=== PATIENT | female | born 1955 | race Caucasian/White ===

== ENCOUNTER 2020-12-24 13:35 | Outpatient (CLI) | payer OTHER ==
--- NOTE | 2020-12-29 08:03 | Mammography Report ---
BILATERAL DIGITAL SCREENING MAMMOGRAM 3D/2D: 12/24/2020 CLINICAL: Routine screening. No prior exams were available for comparison. The tissue of both breasts is predominantly fatty. No significant masses, calcifications, or other findings are seen in either breast. IMPRESSION: NEGATIVE There is no mammographic evidence of malignancy. A 1 year screening mammogram is recommended. This exam was interpreted at Station ID: [id number]. NOTE: For mammograms, a report in lay terms will be sent to the patient. Approximately 15% of breast malignancies will not be visualized mammographically. In the management of a palpable breast mass, a negative mammogram must not discourage biopsy of a clinically suspicious lesion. Electronically Signed By: Wesley Richardson M.D. slc/penrad:12/28/2020 08:11:17 ACR BI-RADS Category 1: Negative 3341F PARENCHYMAL PATTERN: (F) - The breast(s) demonstrate(s) diffuse fatty replacement. BI-RADS CATEGORY: (1) - 1 RECOMMENDATION: (ANNUAL) - Recommend routine annual screening mammography. [id number] 1 year screening LATERALITY: (B)
== END 2020-12-24 13:36 | disposition home or self-care (01) ==
LOC: DI 13:35
PROVIDERS: ATTEND Internal Medicine
DX: Z12.31 Encounter for screening mammogram for malignant neoplasm of breast (principal)

== ENCOUNTER 2021-02-18 12:10 | Outpatient (CLI) | payer OTHER ==
--- NOTE | 2021-02-18 14:02 | XRAY Report ---
PROCEDURE: Foot 3 View LT INDICATIONS: INJURY OF FOOT TECHNIQUE: 3 views of the foot were acquired. COMPARISON: None. FINDINGS: Bones/joints: No acute, displaced fracture or dislocation. Dorsal and plantar calcaneal enthesophytes are seen. Soft tissues: No focal abnormality. IMPRESSION: 1.No acute osseous abnormality. Reviewed by: Francisco Patiño MD on 02/18/2021 2:01 PM PDT Approved by: Francisco Patiño MD on 02/18/2021 2:01 PM PDT Station ID: [id number]
== END 2021-02-18 12:11 | disposition home or self-care (01) ==
LOC: DI 12:10
PROVIDERS: ATTEND Internal Medicine
DX: S99.922A Unspecified injury of left foot, initial encounter (principal)

== ENCOUNTER 2022-02-08 08:29 | Outpatient (CLI) | payer MEDICARE ==
--- NOTE | 2022-02-08 08:56 | DEXA Report ---
PROCEDURE: Dexa Spine and/or Hip INDICATIONS: POST MENOPAUSAL TECHNIQUE: Dual energy x-ray absorptiometry (DXA) was performed on a Kuponjo System. Regions measur ed are the AP Spine, femoral neck, and if needed forearm. COMPARISON: None. FINDINGS: Lumbar Spine: Bone Mineral Density 1.5 g/cm/cm,T score 2.7, Left Hip: Bone Mineral Density 1.0 g/cm/cm,T score 0.1, Left Femoral Neck: Bone Mineral Density 1.0 g/cm/cm, T score -0.2, (T score greater or equal to -1.0: NORMAL) (T score from -1.1 to -2.4: OSTEOPENIA) (T score less than or equal to -2.5 to: OSTEOPOROSIS) Impression: Normal bone mineral density. Patients with diagnosis of osteoporosis or osteopenia should have regular bone mineral density assess ment. For those eligible for Medicare, routine testing is allowed once every 2 years. Testing frequ ency can be increased for patients who have rapidly progressing disease or for those who are receivin g medical therapy to restore bone mass. Reviewed by: Arsenio Oden MD on 02/08/2022 8:54 AM PDT Approved by: Arsenio Oden MD on 02/08/2022 8:54 AM PDT Station ID: [id number]
== END 2022-02-08 08:30 | disposition home or self-care (01) ==
LOC: DI 08:29
PROVIDERS: ATTEND Physician Assistant
DX: Z78.0 Asymptomatic menopausal state (principal)

== ENCOUNTER 2022-02-09 07:37 | Outpatient (CLI) | payer MEDICARE ==
[2022-02-09 08:04] LABS: BASOPHILS # (AUTO) 0.1 10^3/uL (0.0-0.1); BASOPHILS % (AUTO) 0.7 %; EOSINOPHILS # (AUTO) 0.3 10^3/uL (0.0-0.7); EOSINOPHILS % (AUTO) 4.9 %; HCT - HEMATOCRIT 38.7 % (37.0-47.0); HGB - HEMOGLOBIN 12.5 g/dL (12.0-16.0); LYMPHOCYTES % (AUTO) 28.7 %; MEAN CORPUSCULAR HEMOGLOBIN 29.2 pg (27.0-31.0); MEAN CORPUSCULAR HGB CONC 32.3 g/dL (32.0-36.0); MEAN CORPUSCULAR VOLUME 90.4 fL (81.0-99.0); MONOCYTES # (AUTO) 0.5 10^3/uL (0.0-1.0); MONOCYTES % (AUTO) 6.4 %; NEUTROPHILS # (AUTO) 4.1 10^3/uL (1.5-6.6); NEUTROPHILS % (AUTO) 58.9 %; PLT - PLATELET COUNT 269 10^3/uL (130-450); RED BLOOD COUNT 4.28 10^6/uL (4.20-5.40); RED CELL DISTRIBUTION WIDTH 13.6 % (12.0-15.0)
[2022-02-09 08:05] LABS: ALBUMIN 4.1 g/dL (3.2-5.5); ALBUMIN/GLOBULIN RATIO 1.3 (1.0-2.2); ALKALINE PHOSPHATASE 74 IU/L (42-121); ALT ALANINE AMINOTRANSFERASE 14 IU/L (10-60); AST ASPARTATE AMINOTRANSFERASE 15 IU/L (10-42); BILIRUBIN,TOTAL 0.7 mg/dL (0.2-1.0); BUN - BLOOD UREA NITROGEN 17 mg/dL (6-20); CALCIUM 9.2 mg/dL (8.5-10.3); CARBON DIOXIDE - CO2 28 mmol/L (21-32); CHLORIDE 107 mmol/L (101-111); CHOL/HDL RATIO 2.8 (<4.4); CHOLESTEROL 180 mg/dL; CREATININE 0.7 mg/dL (0.4-1.0); GFR - MDRD 84 (>89); GLUCOSE 99 mg/dL (70-100); HDL CHOLESTEROL 64 mg/dL; LDL CHOLESTEROL,CALCULATED 99 mg/dL; LDL/HDL RATIO 1.5 (<4.4); POTASSIUM 4.2 mmol/L (3.5-5.0); SODIUM 142 mmol/L (135-145); TOTAL PROTEIN 7.2 g/dL (6.7-8.2); TRIGLYCERIDES 83 mg/dL; VLDL CHOLESTEROL 17 mg/dL
[2022-02-09 08:16] LABS: THYROID STIMULATING HORMONE 1.85 uIU/mL (0.34-5.60)
== END 2022-02-09 07:38 | disposition home or self-care (01) ==
LOC: LAB 07:37
PROVIDERS: ATTEND Physician Assistant
DX: I10 Essential (primary) hypertension (principal); Z13.220 Encounter for screening for lipoid disorders; I49.9 Cardiac arrhythmia, unspecified
CPT/HCPCS: 36415; 80053; 80061; 83721; 84443; 85025

== ENCOUNTER 2022-02-18 08:00 | Outpatient (CLI) | payer MEDICARE ==
--- NOTE | 2022-02-18 10:45 | XRAY Report ---
PROCEDURE: Ankle 3 View LT INDICATIONS: UNSPECIFIED INJURY OF LEFT ACHILLES TENDON TECHNIQUE: 3 views of the ankle were acquired. COMPARISON: None. FINDINGS: Bones: No fractures or dislocations. Ankle mortise is normally aligned. No suspicious bony lesions . Age-appropriate degenerative changes are seen. Moderate and Achilles calcaneal spurs are seen. T he talar dome demonstrates an unremarkable appearance. Soft tissues: Generalized soft tissue swelling is seen. There is thickening of the distal Achilles t endon. IMPRESSION: Thickening of the distal Achilles tendon, which is suggestive of a partial tear. If it would be helpful for clinical management decision making, please consider a dedicated, schedule d ankle MRI for further evaluation (assuming that there is no contraindication). Soft tissues tissue swelling can be seen. Underlying degenerative changes are seen, including moderate plantar and Achilles calcaneal spurs. Reviewed by: Chip Flowers MD on 02/18/2022 9:43 AM LENNY Approved by: Chip Flowers MD on 02/18/2022 9:43 AM LENNY Station ID: [id number]
== END 2022-02-18 23:59 | disposition home or self-care (01) ==
LOC: DI 08:00
PROVIDERS: ATTEND Physician Assistant
DX: S86.002A Unspecified injury of left Achilles tendon, initial encounter (principal); M19.072 Primary osteoarthritis, left ankle and foot; R22.42 Localized swelling, mass and lump, left lower limb; M77.32 Calcaneal spur, left foot

== ENCOUNTER 2022-03-01 09:01 | Outpatient (CLI) | payer MEDICARE | END 2022-03-01 09:02 | disposition home or self-care (01) | LOC: NS 09:01 | PROVIDERS: ATTEND Family Medicine | DX: Z71.3 Dietary counseling and surveillance (principal); E66.9 Obesity, unspecified; Z68.41 Body mass index [BMI] 40.0-44.9, adult | CPT/HCPCS: 97802 ==

== ENCOUNTER 2022-04-10 08:55 | Outpatient (CLI) | payer MEDICARE ==
[2022-04-10 09:52] VITALS: BP 120/78
--- NOTE | 2022-04-10 09:52 | SLEEP CARE CONSULTATION ---
Information from patient questionnaire entered by Xu Chau. I have reviewed and concur with the information entered by Xu Chau. This document represents the service I personally performed and the decisions made by me, Christian Pleitez MD, [facility]. History of Present Illness Service Date and Time: 04/10/2022 0855 Reason for Visit: New patient Chief Complaint: reports: Other (new rx ) Date of Onset: 10-15 yrs Usual bedtime: 930-10pm Time it takes to fall asleep: 2min Snores at night: Yes Observed to quit breathing while asleep: Yes Sleeps alone due to snoring: Yes Number of times waking at night: 3-4 Reasons for waking at night: reports: Snoring, Gasping for air Toss, Turn, or Twitch while sleeping: No Recalls having dreams: Yes Usually gets out of bed at: 530-6am Feels refreshed in the morning: No Morning headache: Yes (sinus headache) Prior sleep studies: Yes ([facility] 2009) Year and Where: 2009 Additional HPI information: I had the pleasure of seeing Ms. Harvey today regarding obstructive sleep apnea-hypopnea. As you know, she is a 66-year-old lady who was diagnosed with the sleep-disordered breathing in [place], [place] about 12 years ago. The report is not available. She has a ResMed AirSense 10 set at 4 20 cmH2O. She bought the device online out of pocket. She uses every night and all night except for when she is away from home. The compliance data show usage in 158 out of the past 180 nights, averaging 6.7 hours a night. The residual AHI is 1.0 and average air leak is 1.5 L/minute. The > 4 hour compliance rate for the past 30 days is 86%. She wears the ResMed P10 nasal pillows. She finds the treatment very beneficial. - Parasomnia Symptoms Ever been unable to move upon waking from sleep: No Walks in sleep: No Talks in sleep: No Ever acted out dreams in sleep: No Ever felt weak in the knees when startled or emotional: No Bothered by creepy, crawly, restless sensations in legs: No Problems with memory or concentration: No Subjective Initial [place] Sleepiness Scale score: 24 (04/04/2022) Past Medical History Past Medical History: reports: Arrythmia Social History The patient's occupation is a RE. Patient is Single and lives in [place]. Have you smoked in the past 12 months: No Alcohol use: Yes Alcohol amount and frequency: 1-2 drinks 2 times a week Caffeine use: Yes Caffeine amount and frequency: 1-2 cups daily Family History Family Hx Sleep Apnea: Father: Snoring, Sleep apnea - Treated, Sibling: Snoring, Sleep apnea - Treated Allergies and Home Medications Known drug allergies: No Drug allergies reviewed: Yes Home medication list reviewed: Yes Review of Systems Cardiovascular: reports: irregular heart rate or pulse Respiratory: denies: shortness of breath, wheeze, sputum production, chronic cough, other Gastrointestinal: denies: heartburn, difficulty swallowing, nausea, vomitting, diarrhea, abdominal pain, other Urinary: denies: incontinence, frequency, urgency, impotence, other Neurological: denies: headaches, seizure, head trauma, disorientation, speech dysfunction, gait or balance problems, fainting or unconsciousness, other Psychiatric: denies: Attention Deficit Hyperactivity, anxiety, depression, mood disorder, claustrophobia, other Ear/Nose/Throat: reports: sinus problems, dry mouth/throat Endocrine: denies: thyroid disease, history of goiter, sluggishness, too hot or cold, excessive thirst, increased appetite, increased urination, unexplained weakness, other Musculoskeletal: denies: joint pain, neck pain, back pain, joint swelling, muscle pain or cramping, mobility problems, other Immunologic: denies: sneezing, rash, itching, allergies to food or environment, other Physical Exam Vital signs obtained and entered by: XU Wang MA Blood Pressure: 120/78 (left arm) Cuff size: long Heart Rate: 83 O2 Saturation: 97 Height: 5 ft 7 in Weight: 287 lb 12.8 oz Body Mass Index: 45.1 BMI Classification: Morbidly Obese Neck circumference: 16 Mood/affect: Normal HEENT: No craniofacial malformation Nostrils: patent to airflow Turbinates: normal Septum: midline Mouth and throat: narrow oropharynx Soft palate: long Hard palate: normal Uvula: normal Uvula visualization: 50% Mallampati Class II Tongue: normal in size Tonsils: small Chin and jaw: normal size and position Neck: normal w/o lymphadenopathy or thyromegaly Heart: regular rate and rhythm, murmur Lungs: clear bilaterally Extremities: no edema or clubbing Neurologic: intact Impression and Plan IMPRESSION: 1. Obstructive Sleep Apnea-Hypopnea Syndrome, as previously diagnosed. She has good CPAP compliance. The current pressure setting appears effective and comfortable. Narrow oropharynx and obesity are common predisposing factors for obstructive sleep apnea-hypopnea syndrome. The patient has just gotten on Medicare which should cover her equipment. However, she will need a sleep study to show that she has obstructive sleep apnea-hypopnea. The patient requests a home sleep apnea test (HSAT). She would also like to have a prescription for a traveling CPAP. Plan: 1. Order a home sleep apnea test (HSAT). 2. Prescription made for a traveling autoCPAP set at 4 20 cmH2O. 3. Avoid alcohol, sedative and muscle relaxant around bedtime. 4. Attempt to lose weight. 5. Return for follow up after the test. Continue with device pressure at (cmH2O): 4 - 20 Follow up with Sleep Care in: 1-2 months Visit Type: In Office Time Spent with Patient (minutes): 15 Provider Statement: I spent 100% of the Face to Face Visit with the patient with greater than 50% spent counseling the patient and coordination of care.
== END 2022-04-10 08:56 | disposition home or self-care (01) ==
LOC: SC 08:55
PROVIDERS: ATTEND Internal Medicine Pulmonary Disease
DX: G47.33 Obstructive sleep apnea (adult) (pediatric) (principal); E66.01 Morbid (severe) obesity due to excess calories; Z68.42 Body mass index [BMI] 45.0-49.9, adult
CPT/HCPCS: 99202; G0463; 99212

== ENCOUNTER 2022-05-11 08:32 | Outpatient (CLI) | payer MEDICARE | END 2022-05-11 08:33 | disposition home or self-care (01) | LOC: SC 08:32 | PROVIDERS: ATTEND Internal Medicine Pulmonary Disease | DX: G47.33 Obstructive sleep apnea (adult) (pediatric) (principal); R09.02 Hypoxemia | CPT/HCPCS: G0399 ×2; 95806 ==

== ENCOUNTER 2022-06-23 14:05 | Outpatient (CLI) | payer MEDICARE ==
--- NOTE | 2022-06-23 11:12 | SLEEP CARE CONSULTATION ---
Information from patient questionnaire entered by Pat Chau. I have reviewed and concur with the information entered by Pat Chau. This document represents the service I personally performed and the decisions made by , Steph Melendez ARNP. History of Present Illness Service Date and Time: 06/23/2022 1100 Initial [place] Sleepiness Scale score: 24 (04/04/2022) Current [place] Sleepiness Scale score: 6 (06/23/22) Additional HPI information: ELEUTERIO RENTERIA returns via video telehealth visit for follow up and results of the recently performed home sleep study. She completed the HST to verify her diagnosis of obstructive sleep apnea. Patient has been on a CPAP for some time and will continue with nasal autoCPAP set at 4-20 cmH20. Patient counseled not drink alcohol less than 4 hours before bedtime as it can increase snoring and apnea. Patient was cautioned about risks of drowsy driving until sleepiness symptoms resolve. Patient denies drowsy driving. Sleep Study - Results Type of Sleep Study: Home sleep study (04/11/23) Prior sleep studies: Yes ([facility] 2009) Year and Where: 2009 Polysomnography/Home Sleep Study results: Physician Impression: The quality of the study is good. The length of the study is adequate (> 240 minutes). Please also see the tabulated and graphic data. 1. Obstructive Sleep Apnea-Hypopnea (ICD-10 G47.33), moderate, with an AHI of 27.5/hr and shanta SaO2 of 86%. During the study, the patient had 192 apneas (192 obstructive, 0 central, 0 mixed) and 32 hypopneas. The longest episode lasted 87.0 seconds. The respiratory events occurred independently of sleep stage and body position (supine AHI was 25.9 and non-supine, 28.92). 2. Hypoxemia (ICD-10 R09.02), mild, with the lowest oxygen saturation of 86 % and 6.9 minutes with SaO2 under 90%. Baseline oxygen saturation was normal (Average oxygen saturation was 93%). Allergies and Home Medications Drug allergies reviewed: Yes (NKDA) Home medication list reviewed: Yes (no changes) Review of Systems Review of systems same as previous: Yes (no changes) Physical Exam Vital signs obtained and entered by: VIA PHONE PAT Wang MA Height: 5 ft 7 in (PER PT) Weight: 277 lb (PER PT) Body Mass Index: 43.4 BMI Classification: Morbidly Obese Impression and Plan 1. Obstructive Sleep Apnea-Hypopnea Syndrome, moderate. Patient completed home study to verify her diagnosis and severity. She is to continue with her CPAP therapy. On CPAP therapy, the patient has better sleep quality and is more rested overall. She has not been able to obtain supplies regularly, has been buying online. The last time she bought online she got the wrong hose for her machine. She was informed that DME can be used. I will have my real estate closing coordinator call her and inform of DME options. A DWO prescription will then be made. Patient advised to contact this office if further supply problems. Patient's apnea severity and rationale for treatment to reduce apnea, improve sleep quality and reduce cardiovascular and cerebrovascular events was reviewed. I also reviewed the benefit of consistent device use of CPAP for arrhythmia. 2. Hypoxemia, mild, with the lowest oxygen saturation of 86% and 6.9 minutes with SaO2 under 90%. Her baseline oxygen saturation was normal with an average oxygen saturation of 93%. * Continue auto CPAP pressure at 4-20 cmH2O * Notify me if snoring with mask or feeling that the pressure is too much or too little * Attempt to lose weight * Call this office if any problems using CPAP * Return for follow up in 1 year, or sooner if concerns arise Counseling Topics: Weight loss health impact Visit Type: Telehealth Video Video Type: Doximity Patient Location: Home Location of Provider: Office Patient agrees and consents to this telehealth visit type: Yes Patient agrees to have their insurance billed: Yes Time Spent with Patient (minutes): 15 Provider Statement: I spent 100% of the Telehealth Video Call with the patient with greater than 50% spent counseling the patient and coordination of care.
== END 2022-06-23 14:06 | disposition home or self-care (01) ==
LOC: SC 14:05
PROVIDERS: ATTEND Nurse Practitioner Family
DX: G47.33 Obstructive sleep apnea (adult) (pediatric) (principal); E66.01 Morbid (severe) obesity due to excess calories; Z68.41 Body mass index [BMI] 40.0-44.9, adult; R09.02 Hypoxemia

== ENCOUNTER 2023-02-26 08:27 | Outpatient (CLI) | payer MEDICARE ==
[2023-02-26 08:42] LABS: BASOPHILS # (AUTO) 0.1 10^3/uL (0.0-0.1); EOSINOPHILS # (AUTO) 0.2 10^3/uL (0.0-0.7); EOSINOPHILS % (AUTO) 2.9 %; HCT - HEMATOCRIT 40.1 % (37.0-47.0); LYMPHOCYTES % (AUTO) 31.2 %; MEAN CORPUSCULAR HEMOGLOBIN 29.7 pg (27.0-31.0); MEAN CORPUSCULAR HGB CONC 32.4 g/dL (32.0-36.0); MEAN CORPUSCULAR VOLUME 91.6 fL (81.0-99.0); MEAN PLATELET VOLUME 10.8 fL (7.9-10.8); MONOCYTES # (AUTO) 0.5 10^3/uL (0.0-1.0); MONOCYTES % (AUTO) 8.6 %; NEUTROPHILS # (AUTO) 3.5 10^3/uL (1.5-6.6); PLT - PLATELET COUNT 254 10^3/uL (130-450); RED BLOOD COUNT 4.38 10^6/uL (4.20-5.40); RED CELL DISTRIBUTION WIDTH 13.3 % (12.0-15.0); WHITE BLOOD COUNT 6.3 x10^3/uL (4.8-10.8)
[2023-02-26 09:04] LABS: BUN - BLOOD UREA NITROGEN 20 mg/dL (6-20); CALCIUM 9.6 mg/dL (8.5-10.3); CARBON DIOXIDE - CO2 29 mmol/L (21-32); CHLORIDE 105 mmol/L (101-111); CHOL/HDL RATIO 3.4 (<4.4); CHOLESTEROL 192 mg/dL; CREATININE 0.8 mg/dL (0.6-1.3); GFR - MDRD 72 (>89); GLUCOSE 91 mg/dL (74-104); HDL CHOLESTEROL 57 mg/dL; LDL CHOLESTEROL,CALCULATED 111 mg/dL; LDL/HDL RATIO 1.9 (<4.4); MAGNESIUM 1.9 mg/dL (1.7-2.3); POTASSIUM 3.6 mmol/L (3.5-4.5); SODIUM 140 mmol/L (135-145); TRIGLYCERIDES 120 mg/dL (48-352); VLDL CHOLESTEROL 24 mg/dL
== END 2023-02-26 08:28 | disposition home or self-care (01) ==
LOC: LAB 08:27
PROVIDERS: ATTEND Internal Medicine Cardiovascular Disease
DX: I49.3 Ventricular premature depolarization (principal); I10 Essential (primary) hypertension
CPT/HCPCS: 36415; 80048; 80061; 83721; 83735; 85025

== ENCOUNTER 2023-05-29 14:04 | Outpatient (CLI) | payer MEDICARE ==
--- NOTE | 2023-05-30 12:57 | Mammography Report ---
BILATERAL DIGITAL SCREENING MAMMOGRAM 3D/2D: 05/29/2023 CLINICAL: Routine screening. Comparison is made to exam dated: 12/24/2020 mammogram - [facility]. There are scattered areas of fibroglandular density in both breasts (category b / 25%-50% glandular t issue). No significant masses, calcifications, or other findings are seen in either breast. There has been no significant interval change. IMPRESSION: NEGATIVE There is no mammographic evidence of malignancy. A 1 year screening mammogram is recommended. Based on the Tyrer Cuzick model (a risk assessment model) the patients lifetime risk is 10.7% and her 10 year risk is 5.4%. According to the ACR, ACS, and NCCN guidelines, an annual breast MRI exam janice g with mammogram is recommended if the patients lifetime risk is 20% or greater. This exam was interpreted at Station ID: [id number]. NOTE: For mammograms, a report in lay terms will be sent to the patient. Approximately 15% of breast malignancies will not be visualized mammographically. In the management of a palpable breast mass, a negative mammogram must not discourage biopsy of a clinically suspicious lesion. Electronically Signed By: Kurt Bacon M.D. aty/penrad:05/29/2023 15:59:28 ACR BI-RADS Category 1: Negative 3341F PARENCHYMAL PATTERN: (A) - The breast(s) demonstrate(s) scattered fibroglandular densities. BI-RADS CATEGORY: (1) - 1 Mammogram [id number] 1 year screening LATERALITY: (B)
== END 2023-05-29 14:05 | disposition home or self-care (01) ==
LOC: DI 14:04
DX: Z12.31 Encounter for screening mammogram for malignant neoplasm of breast (principal); R92.323 Mammographic fibroglandular density, bilateral breasts

== ENCOUNTER 2023-10-26 12:25 | Day surgery (SDC) | payer MEDICARE ==
[2023-10-26] MEDS: LACTATED RINGERS 1,000 ML IV ONE ×2 (12:39→14:34)
--- NOTE | 2023-10-26 13:28 | ANESTHESIA ---
Pre-Anesthesia VS, & Labs - Diagnosis screening - Procedure colonoscopy Vital Signs: Temp Pulse Resp BP Pulse Ox O2 Flow Rate 36.3 C L 70 12 139/75 H 97 10/26/23 12:39 10/26/23 12:39 10/26/23 12:39 10/26/23 12:39 10/26/23 12:39 Height: 5 ft 7 in Weight (kg): 125.1 kg Body Mass Index: 43.2 BMI Classification: Morbidly Obese - NPO >8 hours Last Fluid Intake: 0430 - Is Patient ?: No Home Medications and Allergies Home Medications: Ambulatory Orders Losartan [Cozaar] 50 mg PO DAILY 10/23/23 Metoprolol Succinate 100 mg PO BID 10/23/23 hydroCHLOROthiazide [Hydrodiuril] 25 mg PO DAILY 10/23/23 Losartan [Cozaar] 50 mg PO DAILY 10/23/23 Metoprolol Succinate 100 mg PO BID 10/23/23 hydroCHLOROthiazide [Hydrodiuril] 25 mg PO DAILY 10/23/23 Allergies/Adverse Reactions: Allergies Allergy/AdvReac Type Severity Reaction Status Date / Time No Known Drug Allergies Allergy Verified 04/10/22 13:21 Anes History & Medical History - Anesthetic History Anesthesia Complications: reports: No previous complications Family history of Anesthesia Complications: Denies - Medical History Cardiovascular: reports: Hypertension (took metoprolol and losartan today), Arrhythmia (RBBB c pvcs, recent stress test and echo , essentially normal; active, limited by achilles; denies cp/sob), Other Pulmonary: reports: Sleep apnea, CPAP use Gastrointestinal: reports: None Urinary: reports: None Musculoskeletal: reports: Osteoarthritis Endocrine/Autoimmune: reports: None Skin: reports: Eczema Psychosocial: reports: Alcohol (infrequent) - Surgical History General: reports: Colonoscopy Gynecologic: reports: Hysterectomy Exam General: Alert, Oriented x3 Dental: WNL Mouth Openin Fingerbreadth Neck Mobility: Normal Mallampati classification: III Thyromental Distance: 4-6 cm Respiratory: Lungs clear Plan Anesthesia Type: Total IV Consent for Procedure(s) Verified and Reviewed: Yes Code Status: Attempt Resuscitation ASA classification: 2-Mild systemic disease Is this case an emergency?: No
[2023-10-26] MEDS ORDERED: PROPOFOL 500 MG/50 ML 500 MG/50 ML VIAL ONE (14:06)
[2023-10-26 14:45] VITALS: BP 112/69; O2SAT 99
--- NOTE | 2023-10-26 15:12 | ANESTHESIA POST OP EVALUATION ---
Anesthesia Post Eval - Post Anesthesia Eval Vitals: Last Vital Signs Temp 36.4 C L 10/26/23 14:33 Pulse 58 L 10/26/23 14:44 Resp 18 10/26/23 14:44 BP 112/69 10/26/23 14:44 Pulse Ox 99 10/26/23 14:44 O2 Flow Rate CV Function Including HR & BP: Stable Pain Control: Satisfactory Nausea & Vomiting: Negative Mental Status: Baseline Respiratory Status: Airway Patent Hydration Status: Satisfactory Anesthesia Complications: None
== END 2023-10-26 12:26 | disposition home or self-care (01) ==
LOC: SDS 12:25
PROVIDERS: ATTEND Surgery
DX: Z12.11 Encounter for screening for malignant neoplasm of colon (principal); K57.30 Diverticulosis of large intestine without perforation or abscess without bleeding; I10 Essential (primary) hypertension; G47.33 Obstructive sleep apnea (adult) (pediatric); I49.8 Other specified cardiac arrhythmias; E66.01 Morbid (severe) obesity due to excess calories; Z68.41 Body mass index [BMI] 40.0-44.9, adult
CPT/HCPCS: G0121; J7120

== ENCOUNTER 2023-12-18 11:29 | Outpatient (CLI) | payer MEDICARE ==
--- NOTE | 2023-12-18 12:14 | Sleep Patient Instructions ---
Sleep Center Visit Summary - Patient Visit Information Reason for Visit: Annual follow-up for PAP therapy - Patient Instructions Additional Instructions: You will continue with CPAP therapy with pressure set at 4-20 cmH2O. A supply prescription will be sent to your chosen CPAP supplier. I have added an order to update your PAP machine. Please call the office to schedule a compliance follow up once you get your new device. We encourage you to continue to try to lose weight. Please follow up with the sleep care office one month after obtaining new device. - Clinic Information Contact: [facility] [address] [place] [address] [email or web address] T: [phone]
--- NOTE | 2023-12-18 12:21 | SLEEP CARE CONSULTATION ---
Information from patient questionnaire entered by Xu Chau. I have reviewed and concur with the information entered by Xu Chau. This document represents the service I personally performed and the decisions made by me, Steph Melendez ARNP. History of Present Illness Service Date and Time: 12/18/2023 1129 Previous diagnosis: Moderate, Obstructive Sleep Apnea-Hypopnea Syndrome AHI: 27.5 (on 04/11/2024) Reason for follow up: annual (LAST SEEN 06/2022) Equipment type: CPAP (RESMED Airsense 10, s/u 01/2021) Equipment obtained from: Other (1 800 CPAP) Mask style: Nasal pillows Mask brand: Resmed (P10, medium cushion) Backup mask available: Yes Last cushion change: 2 months or more Prior sleep studies: Yes ([facility] 2009) Year and Where: 2009 HPI additional information: ELEUTERIO RENTERIA was diagnosed to have moderate, AHI 27.5, obstructive sleep apnea-hypopnea syndrome and returned today for CPAP therapy annual follow-up. Sleep Study - Results Prior sleep studies: Yes ([facility] 2009) Year and Where: 2009 CPAP Compliance Data - Data Reviewed with Patient Average duration of nightly device use: 7 HRS 8 MINS Compliance rate %: 82 (12/18/22-12/17/23; 306-365 days used) Current pressure setting (cmH2O): 4-20 (avg 11.7, max 12.6) Average residual AHI: 1.1 Central apnea: 0.1 Obstructive apnea: 0.7 Average large leak: 1.2 L/min Compliance data discussion: She uses an older machine when she travels for 2 weeks every 2 months. Subjective Missed days of use due to: reports: travel (to see mother for 2 weeks every 2 months) Patient concerns: reports: mask leak noise, condensation in mask/hose, dry mouth, nose, throat. denies: aerophagia, mask discomfort, air blowing in eyes, nasal congestion, epistaxis Observed to snore while using device: No Current pressure setting perceived as: comfortable On therapy, patient: reports: sleeping better, awakening more refreshed, being more awake and alert during the day, more rested overall. denies: drowsiness while driving Initial [place] Sleepiness Scale score: 24 (04/04/2022) Current [place] Sleepiness Scale score: 7 (12/18/23) Allergies and Home Medications Known drug allergies: No Drug allergies reviewed: Yes Home medication list reviewed: Yes (meloxicam for achilles tendonitis) Allergy and home medication list: Allergies No Known Drug Allergies Allergy (Verified 12/18/23 11:30) Review of Systems Review of systems same as previous: No (ACHILLES TENDINITIS) Physical Exam Vital signs obtained and entered by: XU Wang MA Blood Pressure: 141/56 (RIGHT ARM) Cuff size: long Heart Rate: 70 O2 Saturation: 99 Height: 5 ft 7 in Weight: 286 lb 3.2 oz Body Mass Index: 44.8 BMI Classification: Morbidly Obese Impression and Plan 1. Obstructive Sleep Apnea-Hypopnea Syndrome, moderate, with good treatment compliance and good apnea control. On CPAP therapy, the patient has better sleep quality and is more rested overall. She is new to Medicare and would like to get set up to have them pay for supplies. Currently she is paying out of pocket for all her supplies. She did purchase her CPAP in 2020. She has a back up machine that is aging out. She asks if she can update her machine. She should be eligible for a new device. I will have my respiratory coordinator inform of DME options. A DWO prescription will then be made for supplies and for new CPAP. Patient advised to contact this office if further supply problems. Patient's apnea severity and rationale for treatment to reduce apnea, improve sleep quality and reduce cardiovascular and cerebrovascular events was reviewed. I also reviewed the benefit of consistent device use of CPAP for arrhythmia. 2. Obesity, unspecified. Currently patients BMI is 44.8. Obesity increases the risk of apnea, CPAP pressure requirements and overall health risks especially cardiovascular and diabetes. Thus patient is advised to lose weight. * Continue auto CPAP pressure at 4-20 cmH2O * Transfer DME * Update machine * Update supply prescription * Notify me if snoring with mask or feeling that the pressure is too much or too little * Attempt to lose weight * Call this office if any problems using CPAP * Return for follow up one month after obtaining new CPAP, or sooner if concerns arise Continue with device pressure at (cmH2O): 4-20 Counseling Topics: Spare mask, Weight loss health impact Prescriptions: Auto CPAP, Device supplies (and transfer DME) Plan: update device, compliance followup Visit Type: In Office Time Spent with Patient (minutes): 27 Provider Statement: I spent 100% of the Face to Face Visit with the patient with greater than 50% spent counseling the patient and coordination of care.
[2023-12-18 12:28] VITALS: BP 141/56; O2SAT 99
== END 2023-12-18 11:30 | disposition home or self-care (01) ==
LOC: SC 11:29
PROVIDERS: ATTEND Nurse Practitioner Family
DX: G47.33 Obstructive sleep apnea (adult) (pediatric) (principal); E66.01 Morbid (severe) obesity due to excess calories; Z68.41 Body mass index [BMI] 40.0-44.9, adult
CPT/HCPCS: 99213; G0463; 99212